=== PATIENT | female | born 1995 | race Caucasian/White ===

== ENCOUNTER 2019-01-29 11:07 | Emergency (ER) | payer OTHER ==
[~2019-01-29] VITALS: Ht 170.1 cm; Wt 90.7 kg
[~2019-01-29 11:07] MED LIST: BACTRIM DS 8001 TA1 PO; CLEOCIN150 MG PO; CLINDAMYCIN HC300 MG PO; MOTRIN400 MG PO; MOTRIN800 MG PO; NORCO 325 MG-51 TAB PO; NORCO 5-325 TA1 EACH PO; PERCOCET 325 MG1 TA2 PO; PERIDEX 480 ML480 ML PO; PREDNICOT20 MG PO; TESSALON PERLE100 M1 PO; ZITHROMAX Z PA250 MG PO
[2019-01-29 11:09] VITALS: BP 154/90
[2019-01-29] MEDS ORDERED: IBU800 MG PO (12:28)
[2019-01-29] MEDS ORDERED: PENICILLIN VK500 MG PO (12:28)
== END 2019-01-29 12:38 | disposition home or self-care (01) ==
LOC: ED 11:07
DX: K04.7 Periapical abscess without sinus (principal); Z88.1 Allergy status to other antibiotic agents; Z79.2 Long term (current) use of antibiotics

== ENCOUNTER 2019-04-28 12:28 | Emergency (ER) | payer OTHER ==
[~2019-04-28] VITALS: Ht 170.1 cm; Wt 104.3 kg
[~2019-04-28 12:28] MED LIST changes: +IBU800 MG PO; +PENICILLIN VK500 MG PO
[2019-04-28 12:30] VITALS: BP 135/90
== END 2019-04-28 14:11 | disposition home or self-care (01) ==
LOC: ED 12:28
DX: S80.11XA Contusion of right lower leg, initial encounter (principal); Z88.8 Allergy status to other drugs, medicaments and biological substances; W10.8XXA Fall (on) (from) other stairs and steps, initial encounter; Y93.01 Activity, walking, marching and hiking; Y92.098 Other place in other non-institutional residence as the place of occurrence of the external cause; Y99.8 Other external cause status

== ENCOUNTER 2020-06-08 17:36 | Emergency (ER) | payer OTHER ==
[2020-06-08 17:46] VITALS: BP 112/74
[2020-06-08] MEDS ORDERED: CYCLOBENZAPRINE10 MG PO (19:38)
[2020-06-08] MEDS ORDERED: Motrin,Rufen800 MG PO (19:38)
== END 2020-06-08 19:56 | disposition home or self-care (01) ==
LOC: ED 17:36
DX: S86.911A Strain of unspecified muscle(s) and tendon(s) at lower leg level, right leg, initial encounter (principal); M54.12 Radiculopathy, cervical region; Z88.1 Allergy status to other antibiotic agents; V89.2XXA Person injured in unspecified motor-vehicle accident, traffic, initial encounter; Y93.89 Activity, other specified; Y92.89 Other specified places as the place of occurrence of the external cause; Y99.8 Other external cause status

== ENCOUNTER 2020-11-13 09:20 | Emergency (ER) | payer OTHER ==
[~2020-11-13] VITALS: Ht 170.1 cm; Wt 99.8 kg
[~2020-11-13 09:20] MED LIST changes: +CYCLOBENZAPRINE10 MG PO; +Motrin,Rufen800 MG PO
[2020-11-13 09:29] VITALS: BP 124/80
[2020-11-13] MEDS ORDERED: UNISOM25 M1 PO (10:22)
[2020-11-13] MEDS ORDERED: VITAMIN B-625 M1 PO (10:22)
[2020-11-13 10:28] LABS: BILIRUBIN Negative (Negative); BLOOD Negative (Negative); CLARITY Cloudy (Clear); COLOR Yellow (Yellow); GLUCOSE Negative (Negative); KETONE Negative (Negative); LEUKO ESTERASE 2+ (Negative); NITRITE Negative (Negative); SPECIFIC GRAVITY 1.015 (1.001-1.030); UROBILINOGEN 0.2 E.U./dl (0.0-1.0)
[2020-11-13 10:44] LABS: BACTERIA 1+; EPITHELIAL CELLS 16-20
[2020-11-13] MEDS ORDERED: FLAGYL500 MG PO (10:58)
== END 2020-11-13 10:33 | disposition home or self-care (01) ==
LOC: ED 09:20
PROVIDERS: Emergency Medicine
DX: O21.8 Other vomiting complicating pregnancy (principal); Z3A.01 Less than 8 weeks gestation of pregnancy; Z88.1 Allergy status to other antibiotic agents

== ENCOUNTER 2020-11-16 18:25 | Emergency (ER) | payer OTHER ==
[~2020-11-16] VITALS: Ht 170.1 cm; Wt 99.8 kg
[~2020-11-16 18:25] MED LIST changes: +FLAGYL500 MG PO; +UNISOM25 M1 PO; +VITAMIN B-625 M1 PO
[2020-11-16 18:45] VITALS: BP 138/80
[2020-11-16 19:55] LABS: BASO % 0.2 % (0.0-1.0); EOS # 0.1 10*3/uL (0.0-0.4); EOS % 1.2 % (1.0-4.0); HEMATOCRIT 42.9 % (37.0-47.0); LYMPH # 2.3 10*3/uL (1.3-4.4); LYMPH % 20.2 % (27.0-41.0); MEAN CELL VOLUME 85.6 fl (81.0-99.0); MEAN CORPUSCULAR HGB 27.9 pg (27.0-31.0); MEAN CORPUSCULAR HGB CONC 32.6 g/dl (33.0-37.0); MEAN PLATELET VOLUME 8.9 fl (9.6-12.3); MONO # 0.7 10*3/uL (0.1-1.0); MONO % 6.1 % (3.0-9.0); NEUT # 8.3 10*3/uL (2.3-7.9); PLATELET COUNT AUTOMATED 319 10*3/uL (130-400); RED BLOOD COUNT 5.01 10*6/uL (4.10-5.10); RED CELL DISTRI WIDTH 13.4 % (0-14.5); WHITE BLOOD COUNT 11.6 10*3/uL (4.8-10.8)
[2020-11-16 20:29] LABS: BILIRUBIN Negative (Negative); BLOOD 3+ (Negative); CLARITY Clear (Clear); COLOR Yellow (Yellow); GLUCOSE Negative (Negative); KETONE Negative (Negative); LEUKO ESTERASE 1+ (Negative); NITRITE Negative (Negative); UROBILINOGEN 0.2 E.U./dl (0.0-1.0)
[2020-11-16 20:44] LABS: BACTERIA TRACE; EPITHELIAL CELLS 21-30; MUCOUS TRACE; RBC 51-100 rbc/hpf (0-2)
== END 2020-11-16 21:33 | disposition home or self-care (01) ==
LOC: ED 18:25
PROVIDERS: Emergency Medicine
DX: O46.8X1 Other antepartum hemorrhage, first trimester (principal); Z79.899 Other long term (current) drug therapy; Z88.8 Allergy status to other drugs, medicaments and biological substances; Z3A.01 Less than 8 weeks gestation of pregnancy

== ENCOUNTER → 2022-10-27 | Outpatient (CLI) | payer OTHER ==
[2022-10-27 12:49] LABS: BASO % 0.2 % (0.0-1.0); EOS # 0.1 10*3/uL (0.0-0.4); EOS % 2.4 % (1.0-4.0); HEMATOCRIT 30.6 % (37.0-47.0); LYMPH % 35.7 % (27.0-41.0); MEAN CELL VOLUME 79.5 fl (81.0-99.0); MEAN CORPUSCULAR HGB 24.7 pg (27.0-31.0); MEAN PLATELET VOLUME 9.1 fl (9.6-12.3); MONO # 0.3 10*3/uL (0.1-1.0); MONO % 5.1 % (3.0-9.0); NEUT # 3.1 10*3/uL (2.3-7.9); NEUT % 56.4 % (47.0-73.0); PLATELET COUNT AUTOMATED 425 10*3/uL (130-400); RED BLOOD COUNT 3.85 10*6/uL (4.10-5.10); RED CELL DISTRI WIDTH 13.8 % (0-14.5); WHITE BLOOD COUNT 5.5 10*3/uL (4.8-10.8)
[2022-10-27 13:20] LABS: VITAMIN D, 25-HYDROXY 31.5 ng/mL (30-100)
[2022-10-27 13:21] LABS: BUN 10 mg/dl (9-23); CHLORIDE 108 mmol/L (98-107); CHOLESTEROL 140 mg/dL (<200); LDL CHOLESTEROL 72 mg/dL (9-159); THYROID STIM HORMONE (HS) 2.122 uIU/ml (0.550-4.780); TRIGLYCERIDES 143 mg/dl (<150)
[2022-10-31 13:06] LABS: TESTOSTERONE FREE, (DIRECT) 1.2 pg/mL (0.0-4.2)
== END | disposition home or self-care (01) ==
LOC: LAB 12:20
PROVIDERS: Family Medicine; ATTEND Nurse Practitioner Women's Health
DX: L68.0 Hirsutism (principal); N92.0 Excessive and frequent menstruation with regular cycle; R53.83 Other fatigue

== ENCOUNTER → 2022-11-01 | Outpatient (CLI) | payer OTHER | END | disposition home or self-care (01) | LOC: US 10-27 15:00 | PROVIDERS: ATTEND Nurse Practitioner Women's Health | DX: N93.9 Abnormal uterine and vaginal bleeding, unspecified (principal) ==

== ENCOUNTER 2023-01-01 11:17 | Emergency (ER) | payer OTHER ==
[2023-01-01 11:32] VITALS: BP 139/76
== END 2023-01-01 12:49 | disposition home or self-care (01) ==
LOC: ED 11:17
DX: S05.01XA Injury of conjunctiva and corneal abrasion without foreign body, right eye, initial encounter (principal); Z88.8 Allergy status to other drugs, medicaments and biological substances; Z98.890 Other specified postprocedural states; W50.4XXA Accidental scratch by another person, initial encounter; Y93.89 Activity, other specified; Y92.89 Other specified places as the place of occurrence of the external cause; Y99.8 Other external cause status

== ENCOUNTER 2024-04-02 16:59 | Emergency (ER) | payer OTHER ==
[~2024-04-02] VITALS: Ht 170.1 cm; Wt 104.3 kg
[2024-04-02 17:14] VITALS: BP 134/77
[2024-04-02] MEDS ORDERED: PENICILLIN VK500 MG PO (17:21)
== END 2024-04-02 17:38 | disposition home or self-care (01) ==
LOC: ED 16:59
DX: K08.89 Other specified disorders of teeth and supporting structures (principal); Z79.899 Other long term (current) drug therapy

== ENCOUNTER → 2024-04-18 | Outpatient (CLI) | payer OTHER ==
[2024-04-18 16:32] LABS: BASO % 0.1 % (0.0-1.0); EOS # 0.1 10*3/uL (0.0-0.4); EOS % 1.5 % (1.0-4.0); HEMATOCRIT 35.3 % (37.0-47.0); MEAN CELL VOLUME 82.5 fl (81.0-99.0); MEAN CORPUSCULAR HGB 25.7 pg (27.0-31.0); MEAN CORPUSCULAR HGB CONC 31.2 g/dl (33.0-37.0); MEAN PLATELET VOLUME 8.5 fl (9.6-12.3); MONO # 0.5 10*3/uL (0.1-1.0); MONO % 5.8 % (3.0-9.0); NEUT # 5.8 10*3/uL (2.3-7.9); NEUT % 70.3 % (47.0-73.0); PLATELET COUNT AUTOMATED 359 10*3/uL (130-400); RED BLOOD COUNT 4.28 10*6/uL (4.10-5.10); RED CELL DISTRI WIDTH 13.3 % (0-14.5); WHITE BLOOD COUNT 8.2 10*3/uL (4.8-10.8)
== END | disposition home or self-care (01) ==
LOC: LAB 16:16
PROVIDERS: ATTEND Nurse Practitioner Women's Health
DX: N93.9 Abnormal uterine and vaginal bleeding, unspecified (principal); R53.83 Other fatigue

== ENCOUNTER 2024-07-05 12:58 | Emergency (ER) | payer OTHER ==
[~2024-07-05] VITALS: Ht 170.1 cm; Wt 104.3 kg
[2024-07-05 13:06] VITALS: BP 147/98
[2024-07-05] MEDS ORDERED: CLINDAMYCIN HC300 MG PO (13:22)
[2024-07-05] MEDS ORDERED: NAPROSYN500 MG PO (13:22)
[2024-07-05] MEDS ORDERED: Acetaminophen/Oxycodone 5 MG/325 MG TABLET PO ONE (13:25)
[2024-07-05] MEDS ORDERED: CLINDAMYCIN HCL 300 MG CAPSULE PO ONE (13:25)
== END 2024-07-05 13:47 | disposition home or self-care (01) ==
LOC: ED 12:58
DX: K04.7 Periapical abscess without sinus (principal)

== ENCOUNTER → 2024-12-01 | Outpatient (CLI) | payer OTHER ==
[~2024-12-01] MED LIST changes: +NAPROSYN500 MG PO
== END | disposition home or self-care (01) ==
LOC: US 10:16
PROVIDERS: ATTEND Nurse Practitioner Women's Health
DX: D25.2 Subserosal leiomyoma of uterus (principal); N93.9 Abnormal uterine and vaginal bleeding, unspecified